=== PATIENT | female | born 1960 | race Hispanic/Latino ===

== ENCOUNTER 2021-08-11 02:11 | Emergency (ER) | payer OTHER ==
[~2021-08-11] VITALS: Ht 149.9 cm; Wt 72.1 kg
[2021-08-11] MEDS ORDERED: KETOROLAC TROMETHAMINE 30 MG/ML VIAL IV STA (04:01)
[2021-08-11] MEDS ORDERED: SODIUM CHLORIDE 0.9% 1000ML 1,000 ML IV SCH (04:15)
[2021-08-11] MEDS ORDERED: SODIUM CHLORIDE 0.9% 50ML 50 ML ONE (04:21)
[2021-08-11] MEDS ORDERED: IOPAMIDOL 370 MG/ML 200 ML INFUS..BTL INJ ONE (04:22)
[2021-08-11] MEDS ORDERED: KETOROLAC TROMETHAMINE 30 MG/ML VIAL ONE (04:24)
[2021-08-11] MEDS ORDERED: SODIUM CHLORIDE 0.9% 1000ML 1,000 ML ONE (04:24)
[2021-08-11 05:19] VITALS: BP 148/70
== END 2021-08-11 05:27 | disposition home or self-care (01) ==
LOC: FSED 02:40
DX: R10.12 Left upper quadrant pain (principal); R11.2 Nausea with vomiting, unspecified; E11.65 Type 2 diabetes mellitus with hyperglycemia
CPT/HCPCS: 74177; 80048; 80076; 85025; 99284; J1885; J7030; Q9967

== ENCOUNTER 2024-03-07 19:54 | Emergency (ER) | payer OTHER ==
[~2024-03-07] VITALS: Ht 149.9 cm; Wt 69.9 kg
[2024-03-07 20:25] VITALS: PULSE 86; RESP 18; TEMP 98.2
[2024-03-07] MEDS: MINERAL OIL 132 ML BTL PR ONE (21:52)
[2024-03-07 22:02] VITALS: BP 186/84; PULSE 86; RESP 18; TEMP 98.2; O2SAT 97
== END 2024-03-07 22:02 | disposition home or self-care (01) ==
LOC: FSED 20:01
DX: K59.00 Constipation, unspecified (principal); I10 Essential (primary) hypertension; E11.9 Type 2 diabetes mellitus without complications; E78.5 Hyperlipidemia, unspecified
CPT/HCPCS: 99282